=== PATIENT | male | born 1955 | race Caucasian/White ===

== ENCOUNTER 2021-09-15 17:05 | Emergency (ER) | payer OTHER ==
[~2021-09-15 17:05] MED LIST: AMLODIPINE BESY10 MG PO; ANTI-DIARRHEAL2 M1 PO; ASPIRIN 325MG325 MG PO; ASPIRIN EC81 MG PO; ATROVENT-HFA12.9 GM INH; CLARITIN-D 241 EACH PO; CLONIDINE HCL0.2 MG PO; EUTHYROX25 MCG PO; GLUCOPHAGE 500500 MG PO; METOPROLOL SUCC50 MG PO; MONTELUKAST SOD10 MG PO; NORCO 10-325 T1 EACH PO; RHODIOLA ROSEA PO; TURMERIC CURCUMIN PO; VIT C PO; [UNRECOGNIZED DRUG - OTHER] PO
[2021-09-15 20:12] LABS: HEMOGLOBIN 14.4 gm/dl (14.0-17.5); RED BLOOD COUNT 4.58 M/UL (4.20-5.50); WHITE BLOOD COUNT 8.1 K/UL (4.5-11.0)
[2021-09-15 20:50] LABS: BUN/CREATININE RATIO 17 (0-10)
[2021-09-15] MEDS ORDERED: EPIPEN 2-P0.3 MG/0.3 INJ (21:10)
== END 2021-09-15 21:50 | disposition home or self-care (01) ==
LOC: ER1 17:05
PROVIDERS: Student in an Organized Health Care Education/Training Program
DX: T78.3XXA Angioneurotic edema, initial encounter (principal); I10 Essential (primary) hypertension; E11.9 Type 2 diabetes mellitus without complications; Z88.1 Allergy status to other antibiotic agents; X58.XXXA Exposure to other specified factors, initial encounter
CPT/HCPCS: 80048; 82550; 82553; 84484; 85025; 96365; 99283

== ENCOUNTER → 2022-01-16 | Outpatient (CLI) | payer OTHER ==
[~2022-01-16] MED LIST changes: +EPIPEN 2-P0.3 MG/0.3 INJ
== END ==
LOC: KOH-I 15:18
DX: M79.672 Pain in left foot (principal); M19.072 Primary osteoarthritis, left ankle and foot
CPT/HCPCS: 73630

== ENCOUNTER → 2022-01-28 | Outpatient (CLI) | payer OTHER | LOC: RAD 08:00 | DX: M16.11 Unilateral primary osteoarthritis, right hip (principal) | CPT/HCPCS: J3301; Q9967 ==